=== PATIENT | male | born 1960 | race Caucasian/White ===

== ENCOUNTER 2021-05-01 10:50 | Inpatient (IN) | payer OTHER, MEDICAID ==
[~2021-05-01] VITALS: Ht 182.9 cm; Wt 73.5 kg
--- NOTE | ~2021-05-01 | EMS ---
[facility] [address] [place] [address] EMS Patient Care Report Name: RYAN ELLISON Room: [facility]#: [id number] Admission: 05/01/21 Attend Phys: Discharge: Date of : 64 Report #: [id number] THIS REPORT FOR: //name// Report Transmitted: 05/01/2021 10:35 EMS Care Summary JENNA Ontiveros [place] Incident [id number] @ 05/01/2021 09:59 Incident Location [address] [place] [address] Patient RYAN ELLISON Male, 60 Years 1960 Patient Address [address] [place] [id number] Patient History Cardiac Arrythmia,Cerebral infarction, unspecified,Alcohol related disorders,Anxiety disorder, unspecified,Novel Coronavirus (COVID-19), Patient Allergies No known allergies, Chief Complaint Alcohol related symptoms Disposition Transported No Lights/[place] Dispatch Reason Heart Problems/AICD Transported To [facility] Narrative Dispatched to address noted for chest pain. Dispatched advised to stage due to aggression towards note taker. [facility] en route and staged at time noted. Arrived and found patient with IPD. Patient was alert and sitting up in bed. Patient stated he had chest pain and wanted transport. Patient was very sarcastic and demonstrated some aggressive remarks about being transported. [facility] [address] [place] [address] EMS Patient Care Report Name: RYAN ELLISON Room: [facility]#: [id number] Admission: 05/01/21 Attend Phys: Discharge: Date of : 64 Report #: [id number] patient was able to walk with assistance and had a difficult time with balance. Patient smelled of ETOH but wound not tell me if he drank anything. Patient had a backpack and a bag that was brought with him and left with him at the destination. Patient was assisted into the ambulance and vitals where attempted. Once in the ambulance, patient initially refused vitals and we had to explain whey they where needed. Patient had some loud verbal outbursts but was no physically violent. Patient refused multiple treatments and vitals assessments. 4 lead ECG was obtained with basic vitals and he would not state any other current medical conditions. Patient stated he wanted to be taken to any hospital and when [facility] was chosen he refused. Patient agreed to [facility]. While en route, vitals where taken again. Patient continued to refuse any questions other than a GCS scale. patient was able to answer them but I believe the patient is not of sound mind to make medical decisions due to possible intoxication. Radio report was given at time noted. Arrived and took patient to room 4. Patient was moved to bed and RN was given verbal report. RN signed for patient and patient care. END REPORT EMT-P Vargas Doe Initial Vitals @10:34SpO2: 97, @10:39SpO2: 97, @10:40SpO2: 96, @10:44SpO2: 95, @10:29P: 107,R: 15,BP: 119/80, @10:40P: 105,R: 16,BP: 98/68, @10:29GCS: 15, @10:40GCS: 15, @10:36 Assessments @10:10MENTAL:SKIN:HEENT:LUNG SOUNDS:ABDOMEN:PELVIS//GI:EXTREMITIES:PULSE:NEURO: Impression Alcohol use Timeline 09:59,Dispatch Notified 09:59,Psap Call 09:59,Dispatched 09:59,En Route 10:07,On Scene 10:10,At Patient 10:29,BP: 119/80 M,PULSE: 107,RR: 15 R,SPO2: Ox,ETCO2: ,BG: ,PAIN: ,GCS: , 10:29,BP: / M,PULSE: ,RR: R,SPO2: Ox,ETCO2: ,BG: ,PAIN: ,GCS: 15, [place] [address] EMS Patient Care Report Name: RYAN Room: [facility]#: [id number] Admission: 05/01/21 Attend Phys: Discharge: Date of : 64 Report #: [id number] 10:33,Depart Scene 10:34,BP: / M,PULSE: ,RR: R,SPO2: 97 Ox,ETCO2: ,BG: ,PAIN: ,GCS: , 10:36,BP: / M,PULSE: ,RR: R,SPO2: Ox,ETCO2: ,BG: ,PAIN: ,GCS: , 10:39,BP: / M,PULSE: ,RR: R,SPO2: 97 Ox,ETCO2: ,BG: ,PAIN: ,GCS: , 10:40,BP: / M,PULSE: ,RR: R,SPO2: 96 Ox,ETCO2: ,BG: ,PAIN: ,GCS: , 10:40,BP: 98/68 M,PULSE: 105,RR: 16 R,SPO2: Ox,ETCO2: ,BG: ,PAIN: ,GCS: , 10:40,BP: / M,PULSE: ,RR: R,SPO2: Ox,ETCO2: ,BG: ,PAIN: ,GCS: 15, 10:44,BP: / M,PULSE: ,RR: R,SPO2: 95 Ox,ETCO2: ,BG: ,PAIN: ,GCS: , 10:48,At Destination 10:58,Call Closed Disclaimer v1.1 Copyright 2021 [employer] This EMS Care Summary contains data elements from the applicable legal record (which may be displayed differently). It is designed to provide pertinent information for the following purposes: continuity of care, clinical quality, and state data reporting. The complete legal record is available to ED staff and administrators of the receiving hospital in [employer]s Patient Tracker. All data is provided "as is."
[2021-05-01 10:53] VITALS: BP 111/71
[2021-05-01 12:03] LABS: ABSOLUTE EOSINOPHILS 0.1 thou/uL (0.0-0.7); ABSOLUTE LYMPHOCYTES 1.7 thou/uL (0.8-5.3); ABSOLUTE MONOCYTES 0.3 thou/uL (0.0-1.2); ABSOLUTE NEUTROPHILS 2.5 thou/uL (1.6-8.1); BASOPHILS 0.8 %; EOSINOPHILS 1.8 %; HEMATOCRIT 38.7 % (42.0-52.0); HEMOGLOBIN 12.7 gm/dL (14.0-18.0); LYMPHOCYTES 36.7 %; MCH 29.7 pg (26.0-34.0); MCHC 32.8 g/dL (28.0-37.0); MCV 90.6 fL (80.0-100.0); MONOCYTES 5.7 %; MPV 8.2 fl. (7.2-11.1); NUCLEATED RBCS 0 /100WBC; PLATELET COUNT* 173 thou/uL (150-400); RBC 4.27 mil/uL (4.50-6.00); RDW-CV 14.6 % (10.5-14.5); WBC 4.6 thou/uL (4.0-11.0)
[2021-05-01 12:25] LABS: ALBUMIN 3.5 g/dL (3.4-5.0); MAGNESIUM 1.6 mg/dL (1.8-2.4); TOTAL BILIRUBIN 0.5 mg/dL (<0.1-1.0)
[2021-05-01 14:04] LABS: SALICYLATE < 2.8 mg/dL (2.8-20.0)
[2021-05-01 14:07] LABS: ACETAMINOPHEN 2 ug/mL (10-30); ALCOHOL 420 mg/dL (<10)
[2021-05-01 14:15] LABS: URINE BILIRUBIN NEGATIVE (Negative); URINE BLOOD TRACE (Negative); URINE CLARITY CLEAR; URINE COLOR YELLOW; URINE GLUCOSE-RANDOM NEGATIVE (Negative); URINE KETONES TRACE (Negative); URINE LEUKOCYTES-REFLEX NEGATIVE (Negative); URINE NITRITE-REFLEX NEGATIVE (Negative); URINE PROTEIN TRACE (Negative); URINE SPECIFIC GRAVITY >= 1.030 (1.005-1.030)
[2021-05-01 14:22] LABS: AMP/METHAMP Negative (Negative); BARBITURATES Negative (Negative); BENZODIAZEPINES POSITIVE (Negative); COCAINE Negative (Negative); METHADONE Negative (Negative); OPIATES Negative (Negative); PCP Negative (Negative); THC Negative (Negative)
[2021-05-01 14:36] LABS: BACTERIA-REFLEX None Seen /HPF (None Seen); CASTS None Seen /LPF (None Seen); CRYSTALS None Seen /LPF (None Seen); SQUAMOUS 0-3 Few /LPF (0-3); URINE RBC 0-2 Rare /HPF (0-2); URINE WBC-REFLEX None Seen /HPF (0-5)
[2021-05-01 18:12] VITALS: BP 111/79
[2021-05-01 18:30] VITALS: BP 109/67
[2021-05-01 20:00] VITALS: BP 104/75
[2021-05-01] MEDS ORDERED: LOPRESSOR50 MG PORT (20:07)
[2021-05-01] MEDS ORDERED: SLOW FE142 MG PO (22:34)
[2021-05-01] MEDS ORDERED: FOLIC ACID1 MG PO (22:37)
[2021-05-01] MEDS ORDERED: TAMSULOSIN HCL0.4 MG PO (22:39)
[2021-05-01] MEDS ORDERED: PRAZOSIN 1 MG CA1 M1 PO (22:40)
[2021-05-01] MEDS ORDERED: DULOXETINE HCL60 MG PO (22:41)
[2021-05-01] MEDS ORDERED: LIPITOR40 MG PO (22:42)
[2021-05-01] MEDS ORDERED: DILTIAZEM ER180 M2 PO (22:43)
[2021-05-01] MEDS ORDERED: FLONASE 0.05%50 MCG NARES (22:46)
[2021-05-01] MEDS ORDERED: PROAIR HFA8.5 GM INH (22:48)
[2021-05-02] VITALS (9 sets, daily range): BP systolic 99–124; BP diastolic 59–91
[2021-05-02 00:52] LABS: HEMATOCRIT 30.1 % (42.0-52.0)
[2021-05-02 00:57] LABS: HEMOGLOBIN 10.1 gm/dL (14.0-18.0)
[2021-05-02 07:07] LABS: HEMATOCRIT 37.6 % (42.0-52.0)
[2021-05-02 07:09] LABS: HEMOGLOBIN 12.5 gm/dL (14.0-18.0)
--- NOTE | 2021-05-02 09:51 | EKG ---
[place] [address] ELECTROCARDIOGRAM REPORT Name: RYAN ELLISON Room: [address] ADM IN [facility].#: [id number] Admission: 05/01/21 Attend Phys: Ramirez Zuniga, Discharge: Date of : 64 Date of Service: 05/01/21 1054 Report #: [id number] THIS REPORT FOR: //name// [facility] ED Test Date: 2021-05-01 Test Time: 10:54:21 Pat Name: RYAN ELLISON Department: Room: [facility] Gender: M Change Manager: MARIO : 1960 Requested By: Bennett Huitron Order Number: [id number] MD: Jon Melton Measurements Intervals [place] Rate: 100 P: [place]: QRS: 24 QRSD: 96 T: 39 QT: 365 QTc: 471 Interpretive Statements Atrial fibrillation No previous ECG available for comparison Electronically Signed On 05-02-2021 9:51:40 COUNTER ATTENDANT by Jon Melton [email or web address] <ELECTRONICALLY SIGNED> By: Jon Melton MD, [facility] 05/02/21 0951 1054 1054 Jon Melton MD, FACC /EPI
[2021-05-02 14:00] LABS: MCH 30.5 pg (26.0-34.0); MCHC 33.2 g/dL (28.0-37.0); MCV 91.7 fL (80.0-100.0); RBC 4.09 mil/uL (4.50-6.00); WBC 3.3 thou/uL (4.0-11.0)
[2021-05-02 14:01] LABS: MPV 8.2 fl. (7.2-11.1); RDW-CV 13.2 % (10.5-14.5)
[2021-05-02 14:06] LABS: ALBUMIN 2.9 g/dL (3.4-5.0); CALCIUM 7.4 mg/dL (8.5-10.1); CREATININE 1.1 mg/dL (0.6-1.3); POTASSIUM 3.5 mmol/L (3.5-5.1); TOTAL BILIRUBIN 0.6 mg/dL (<0.1-1.0); TOTAL PROTEIN 6.4 g/dL (6.4-8.2)
[2021-05-02 16:59] LABS: HEMATOCRIT 26.7 % (42.0-52.0)
[2021-05-03] VITALS: BP 131/59
[2021-05-03 04:00] VITALS: BP 102/71
[2021-05-03 05:21] LABS: ABSOLUTE EOSINOPHILS 0.1 thou/uL (0.0-0.7); ABSOLUTE LYMPHOCYTES 1.4 thou/uL (0.8-5.3); ABSOLUTE MONOCYTES 0.4 thou/uL (0.0-1.2); BASOPHILS 0.5 %; EOSINOPHILS 3.2 %; HEMATOCRIT 26.8 % (42.0-52.0); HEMOGLOBIN 8.9 gm/dL (14.0-18.0); LYMPHOCYTES 34.8 %; MCH 30.6 pg (26.0-34.0); MCHC 33.4 g/dL (28.0-37.0); MCV 91.4 fL (80.0-100.0); MONOCYTES 10.4 %; MPV 8.9 fl. (7.2-11.1); NUCLEATED RBCS 0 /100WBC; POLYS 51.1 %; RBC 2.93 mil/uL (4.50-6.00); RDW-CV 14.3 % (10.5-14.5); WBC 3.9 thou/uL (4.0-11.0)
[2021-05-03 05:41] LABS: PLATELET COUNT* 104 thou/uL (150-400)
[2021-05-03 05:53] LABS: CALCIUM 7.8 mg/dL (8.5-10.1); POTASSIUM 3.4 mmol/L (3.5-5.1)
[2021-05-03 08:16] VITALS: BP 90/56
[2021-05-03 11:46] VITALS: BP 94/63
--- NOTE | 2021-05-03 14:18 | CON ---
[address] [address] CONSULTATION Name: RYAN ELLISON Room: [address] [place]#: [id number] Admission: 05/01/21 Attend Phys: Ramirez Zuniga MD Discharge: Date of : 64 Report #: [id number] THIS REPORT FOR: cc: RYDER - No family physician/PCP FAM - No family physician/PCP Jon Melton MD [facility] ~ DATE OF CONSULTATION: 05/02/2021 CARDIOLOGY CONSULTATION HISTORY OF PRESENT ILLNESS: The patient is a 60-year-old single white male who I was asked to see in the hospital today after he was noted to be in atrial fibrillation. The patient has a diagnosis of atrial fibrillation lasted at least 5 years. He previously was hospitalized at [facility]. He has never cardioverted. He has never had a stress test. He has been chronically anticoagulated. Recently, he has had bleeding hemorrhoids. He apparently was admitted to [facility] 2 weeks ago. He was discharged. He continues to bleed. He finally drove himself to [place] last night. He complains of pressure in his chest. He was uncooperative in the Emergency Room last night and refused speaking to the Emergency Room doctor. He does a constant pressure in his chest. He recently lost his job. He has been short of breath. He notes his heart was racing. He felt dizzy. He notes he needs to help his addiction to alcohol. PAST MEDICAL HISTORY: He has had arm fracture, elbow fracture, cataract extraction. No history of hypertension, diabetes. MEDICATIONS: On admission consisted of the following list: He is on Xarelto, albuterol inhaler, Lipitor, Cardizem CD 180 mg a day, Cymbalta, iron, metoprolol 50 mg twice a day, Hytrin 1 mg a day and Flomax. ALLERGIES: He has no known drug allergies. FAMILY HISTORY: Negative for heart disease. SOCIAL HISTORY: He is single, lives in [place] He apparently is homeless. 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 He used to smoke half pack of cigarettes a day, quit last August. He has a history of alcohol abuse. He has been in AA in the past, currently drinks a pint of vodka a day. He has passed off from drinking in the past. No history of seizures, vomiting blood, hepatitis. REVIEW OF SYSTEMS: No history of stroke. He does have asthma, uses inhalers. No history of kidney disease or cancer. He saw [place] [address] CONSULTATION Name: RYAN ELLISON Room: [address]#: [id number] Admission: 05/01/21 Attend Phys: Ramirez Zuniga MD Discharge: Date of : 64 Report #: [id number] skin condition. PHYSICAL EXAMINATION: GENERAL: Revealed a middle-aged male, appeared in no acute distress. VITAL SIGNS: He had a blood pressure 120/80, pulse is 100 and irregular. He is afebrile. HEENT: He was anicteric. Conjunctivae pink. Mucosa moist. NECK: Neck veins do not appear distended. No carotid bruits. CHEST: Clear to auscultation. HEART: Irregular, tachycardia. No significant murmur. ABDOMEN: Soft. EXTREMITIES: Had no pitting edema. SKIN: Cool and dry. DIAGNOSTIC DATA: ECG on admission showed atrial fibrillation with an increased ventricular response rate. Workup, the patient had a portable chest x-ray in the Emergency Room last night that showed normal heart size, clear lung denney. LABORATORY DATA: Creatinine 1.0, albumin 3.5, high sensitivity troponin was 38. BNP 445. Alcohol level 420. Hematocrit 37.6. His COVID antigen stat test was negative. Urinalysis, no wbc's. IMPRESSION AND RECOMMENDATIONS: 1. Suspect permanent atrial fibrillation. Rate controlled with calcium kiarra and beta kiarra. I would hold anticoagulation at this time because of bleeding hemorrhoids. The patient does not appear to be a very good candidate for anticoagulation because of his social situation and alcohol abuse. 2. Bleeding hemorrhoids. 3. Previous tobacco abuse. 4. History of alcohol abuse. The patient has had withdrawal symptoms in the past. 5. Asthma. <ELECTRONICALLY SIGNED> By: Jon Melton MD, FACC 05/03/21 1418 0833 [id number] Melton MD, FAC /nt
[2021-05-03 16:44] VITALS: BP 134/61
[2021-05-03 20:00] VITALS: BP 120/87
[2021-05-04] VITALS: BP 108/73
[2021-05-04 04:00] VITALS: BP 104/72
[2021-05-04] MEDS ORDERED: VITAMIN B-1100 M1 PO (12:37)
[2021-05-04] MEDS ORDERED: MAGNESIUM OXID250 MG PO (12:37)
--- NOTE | 2021-05-04 15:09 | PATH ---
[address] [address] PATHOLOGY RPT PROCEDURE Name: ALEC ELLISON Room: [address] IN .R.#: [id number] Admission: 05/01/21 Date of : 64 Discharge: Report #: [id number] Path Case #: [id number] [facility] Accession Number: [id number] . 01 Material submitted: . rectum - RECTAL POLYP . 01 Clinical history: . COLONOSCOPY . 02 Diagnosis: Rectal polyp: - Tubular adenoma, negative for high-grade dysplasia. (ARIELA:jenn; 05/04/2021) [facility] [place]04[place] 1325 Local . 02 Electronically signed: . Chaz Holm MD, Pathologist NPI- [id number] . 01 Gross description: . The specimen is received in formalin, labeled "Alec Ellison rectal polyp". Received is a single segment of pale awan tissue measuring 0.6 cm in maximum dimensions. The specimen is entirely submitted in cassette A1. ([facility]; 05/03/2021) NRI/NRI 05/03/20212044 Local . 02 Pathologist provided ICD-10: D12.8 . 02 CPT . 413597 Specimen Comment: A courtesy copy of this report has been sent to [phone] Specimen Comment: [id number] Specimen Comment: Report sent to / DR URIOSTEGUI Performed at: 01 [facility] [id number] [address], [place] [id number] MD Daniel Terry MD Phone: [phone] Performed at: 02 [facility] [address], [place], [place] [id number] MD Chaz Holm MD Phone: [phone]
[2021-05-04 17:41] VITALS: BP 150/72
== END 2021-05-04 16:56 | disposition home or self-care (01) | DRG 379 ==
LOC: M.ERS 10:50 → M.TBA-ER 15:55 → M.2W 15:55
PROVIDERS: Emergency Medicine Emergency Medical Services; ADMIT Internal Medicine; ATTEND Internal Medicine
DX: K57.31 Diverticulosis of large intestine without perforation or abscess with bleeding (principal); F10.129 Alcohol abuse with intoxication, unspecified; K62.5 Hemorrhage of anus and rectum; J45.909 Unspecified asthma, uncomplicated; D64.9 Anemia, unspecified; K63.5 Polyp of colon; K64.8 Other hemorrhoids; Z20.822 Contact with and (suspected) exposure to COVID-19; K64.4 Residual hemorrhoidal skin tags; K21.9 Gastro-esophageal reflux disease without esophagitis; Z59.00 Homelessness unspecified

== ENCOUNTER 2021-05-07 16:52 | Inpatient (IN) | payer OTHER, MEDICAID ==
[~2021-05-07] VITALS: Ht 182.9 cm; Wt 74.8 kg
[~2021-05-07 16:52] MED LIST: DILTIAZEM ER180 M2 PO; DULOXETINE HCL60 MG PO; FLONASE 0.05%50 MCG NARES; FOLIC ACID1 MG PO; LIPITOR40 MG PO; LOPRESSOR50 MG PORT; MAGNESIUM OXID250 MG PO; PRAZOSIN 1 MG CA1 M1 PO; PROAIR HFA8.5 GM INH; SLOW FE142 MG PO; TAMSULOSIN HCL0.4 MG PO; VITAMIN B-1100 M1 PO
[2021-05-07 17:00] VITALS: BP 142/71
[2021-05-07 17:39] LABS: ABSOLUTE MONOCYTES 0.4 thou/uL (0.0-1.2); BASOPHILS 0.9 %; EOSINOPHILS 0.1 %; HEMATOCRIT 29.2 % (42.0-52.0); HEMOGLOBIN 9.8 gm/dL (14.0-18.0); LYMPHOCYTES 29.4 %; MCH 30.6 pg (26.0-34.0); MCHC 33.4 g/dL (28.0-37.0); MCV 91.5 fL (80.0-100.0); MONOCYTES 12.1 %; MPV 6.9 fl. (7.2-11.1); NUCLEATED RBCS 1 /100WBC; PLATELET COUNT* 176 thou/uL (150-400); POLYS 57.5 %; RBC 3.19 mil/uL (4.50-6.00); RDW-CV 15.5 % (10.5-14.5); WBC 3.4 thou/uL (4.0-11.0)
[2021-05-07 17:50] LABS: CALCIUM 7.2 mg/dL (8.5-10.1); CREATININE 1.3 mg/dL (0.6-1.3); POTASSIUM 3.5 mmol/L (3.5-5.1)
[2021-05-07 18:00] LABS: ALBUMIN 3.3 g/dL (3.4-5.0); MAGNESIUM 1.2 mg/dL (1.8-2.4); TOTAL BILIRUBIN 0.5 mg/dL (<0.1-1.0); TOTAL PROTEIN 7.7 g/dL (6.4-8.2)
[2021-05-07 23:50] VITALS: BP 101/66
[2021-05-08 00:29] VITALS: BP 120/77
[2021-05-08 04:52] VITALS: BP 122/85
[2021-05-08 07:45] VITALS: BP 120/85
[2021-05-08] MEDS ORDERED: LOPRESSOR50 MG PO (10:24)
--- NOTE | 2021-05-08 10:57 | CON ---
[address] [address] CONSULTATION Name: RYAN ELLISON Room: [address] IN [place]#: [id number] Admission: 05/07/21 Attend Phys: Ramirez Zuniga MD Discharge: Date of : 64 Report #: [id number] THIS REPORT FOR: cc: FAM - No family physician/PCP FAM - No family physician/PCP Jon Melton MD [facility] ~ DATE OF CONSULTATION: 05/08/2021 HISTORY OF PRESENT ILLNESS: The patient is a 60-year-old single white male who I was asked to see in the hospital today after he was noted to be in atrial fibrillation. The patient has a long history of atrial fibrillation lasting several years. He has never been cardioverted, never had a stress test. He has been chronically anticoagulated. He was actually just admitted to [place] 2 weeks ago with bleeding hemorrhoids. He was taken off of Xarelto and underwent endoscopy and a polyp was removed. The decision was made not to perform surgery on his hemorrhoids. The patient was discharged a week ago. He notes since his discharge, he has had mucus from his bowel. He has had no more bleeding. He noticed his heart was racing. He did feel some chest tightness and shortness of breath. He finally called the ambulance and was brought back to the Emergency Room last night. He has had no edema, syncope. He continues to drink a pint of vodka a day. I was asked to see him for further evaluation and treatment. PAST MEDICAL HISTORY: He has had arm fracture, elbow fracture, cataract extraction. No history of hypertension, diabetes. MEDICATIONS: Include Xarelto, albuterol inhaler, Lipitor, diltiazem, Cymbalta, iron, metoprolol, Hytrin. ALLERGIES: He has no known drug allergies. FAMILY HISTORY: Negative for heart disease. SOCIAL HISTORY: He is single, lives in [place]. He has been homeless in the past. Currently lives with some friends. 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 He quit smoking last August, has a history of alcohol abuse. He has been to [facility] in the past. He has been to alcohol rehab in the past. REVIEW OF SYSTEMS: No history of stroke. He does have asthma, uses inhalers. No history of kidney disease or cancer. He saw a psychiatrist in the past. No chronic skin condition. PHYSICAL EXAMINATION: GENERAL: Revealed a middle-aged male, lying in bed, appeared [place] [address] CONSULTATION Name: RYAN ELLISON Room: [address]#: [id number] Admission: 05/07/21 Attend Phys: Ramirez Zuniga MD Discharge: Date of : 64 Report #: [id number] VITAL SIGNS: He had a blood pressure 120/80, pulse is 100 and irregular. He was afebrile. HEENT: He was anicteric. Conjunctivae pink. Mucosa membranes moist. NECK: Neck veins are not distended. No carotid bruits. Neck is supple. CHEST: Clear to auscultation. HEART: Irregular, tachycardia. No significant murmur. ABDOMEN: Soft. EXTREMITIES: Had no pitting edema. SKIN: Cool and dry. NEUROLOGIC: Nonfocal. LABORATORY DATA: ECG on admission showed atrial fibrillation with rapid ventricular response rate or PVC. His workup, he actually had a chest x-ray last night that showed normal heart size, clear lung denney. LABORATORY DATA: Potassium 3.5, creatinine 1.3. His magnesium was only 1.2, albumin 3.3. High sensitivity troponin 146. BNP 912. Recent TSH is 2.5. His alcohol level yesterday was 409. His hemoglobin was 9.8. IMPRESSION AND RECOMMENDATIONS: 1. Permanent atrial fibrillation. I would aim for rate control with metoprolol and diltiazem. I would not recommend attempts at cardioversion. If okay from GI standpoint, I would resume anticoagulation with Xarelto. 2. Recent bleeding from hemorrhoids. The patient was seen by Surgery. 3. Previous tobacco abuse. 4. History of alcohol abuse. The patient has had withdrawal symptoms in the past. 5. History of asthma. 6. Borderline troponin. No evidence of acute myocardial infarction. Recommend echocardiogram. <ELECTRONICALLY SIGNED> By: Jon Melton MD, [facility] 05/08/21 1057 0810 0920Dajuani Melton MD, FAC /nt
--- NOTE | 2021-05-08 11:23 | EKG ---
[place] [address] ELECTROCARDIOGRAM REPORT Name: RYAN ELLISON Room: [address] ADM [place] ..#: [id number] Admission: 05/07/21 Attend Phys: Ramirez Zuniga, Discharge: Date of : 64 Date of Service: 05/07/21 1656 Report #: [id number] THIS REPORT FOR: //name// [facility] ED Test Date: 2021-05-07 Test Time: 16:56:45 Pat Name: RYAN ELLISON Department: Room: [facility] Gender: M Workplace Rehabilitation Officer: ARTURO : 1960 Requested By: Bennett Huitron Order Number: [id number] MD: Jon Melton Measurements Intervals [place] Rate: 148 P: [place]: QRS: 13 QRSD: 87 T: 29 QT: 310 QTc: 487 Interpretive Statements Atrial fibrillation Ventricular premature complex Compared to ECG 05/01/2021 10:54:21 Ventricular premature complex(es) now present rate has increased Electronically Signed On 05-08-2021 11:23:17 RADIOGRAPHER CARDIAC CATHETERIZATION by Jon Melton [email or web address] <ELECTRONICALLY SIGNED> By: Jon Melton MD, FAC 05/08/21 1123 1656 1656 Jon Melton MD, [facility] /EPI
[2021-05-08 11:48] VITALS: BP 126/82
[2021-05-08 12:23] VITALS: BP 126/82
== END 2021-05-08 13:15 | disposition home or self-care (01) | DRG 310 ==
LOC: M.ERS 16:52 → M.TBA-ER 18:18 → M.2W 05-08 00:16
PROVIDERS: Emergency Medicine Emergency Medical Services; ADMIT Internal Medicine; ATTEND Internal Medicine
DX: I48.21 Permanent atrial fibrillation (principal); F10.129 Alcohol abuse with intoxication, unspecified; Y90.0 Blood alcohol level of less than 20 mg/100 ml; Z20.822 Contact with and (suspected) exposure to COVID-19; Z79.01 Long term (current) use of anticoagulants; J45.909 Unspecified asthma, uncomplicated